=== PATIENT | female | born 2000 | race African-American/Black ===

== ENCOUNTER 2025-03-09 10:41 | Emergency (ER) | payer MEDICAID ==
[~2025-03-09] VITALS: Ht 165.1 cm; Wt 85.0 kg
[2025-03-09 10:51] VITALS: BP_SYST 130; O2SAT 97
[2025-03-09 11:47] LABS: BASOPHILS % 0.2 % (0.0-2.0); EOSINOPHILS % 0.9 % (0.0-5.0); HEMATOCRIT. 32.2 % (36.0-48.0); HEMOGLOBIN. 10.3 g/dL (12.0-16.0); LYMPHOCYTES % 24.7 % (20.0-50.0); MEAN PLATELET VOLUME 7.9 fl (7.4-10.4); MONOCYTES % 5.2 % (2.0-8.0); NEUTROPHILS % 69.0 % (40.0-76.0); PLATELET 380 x1000/uL (130-400); RED BLOOD CELL COUNT 4.04 mill/uL (4.2-5.4); RED CELL DISTRIBUTION WIDTH 19.2 % (11.6-14.6)
[2025-03-09 11:48] LABS: CLARITY URINE TURBID (CLEAR); COLOR URINE ORANGE (YELLOW); GLUCOSE URINE NEGATIVE (NEGATIVE); KETONES URINE NEGATIVE (NEGATIVE); LEUKOCYTE ESTERASE URINE 1+ (NEGATIVE); NITRITE URINE NEGATIVE (NEGATIVE); OCCULT BLOOD URINE 3+ (NEGATIVE); PH URINE 8.0 (4.5-8.0); PROTEIN URINE 1+ (NEGATIVE); SPECIFIC GRAVITY URINE 1.018 (1.005-1.030); UROBILINOGEN URINE 1.0 E.U./dL (0.2-1.0)
[2025-03-09 12:02] LABS: B-HCG QUANTITATIVE 572 mIU/mL (<6)
[2025-03-09 12:03] LABS: CREATININE 0.6 mg/dL (0.6-1.0); UREA NITROGEN BLOOD 5 mg/dL (9-23)
[2025-03-09 12:44] LABS: SQUAMOUS EPITHELIAL CELL URINE 3+ /lpf (RARE/1+)
[2025-03-09 12:47] LABS: BACTERIA URINE 4+; RBC URINE 15-25 /hpf (0-2)
[2025-03-09 13:00] VITALS: BP_DIAS 72; PULSE 80; RESP 16; TEMP 37; O2SAT 98
== END 2025-03-09 13:10 | disposition home or self-care (01) ==
LOC: ER 10:41
DX: O20.9 Hemorrhage in early pregnancy, unspecified (principal); R10.20 Pelvic and perineal pain unspecified side; Z3A.01 Less than 8 weeks gestation of pregnancy
CPT/HCPCS: 36415; 76801; 80048; 81003; 84702; 85025; 99284